=== PATIENT | female | born 2000 ===

== ENCOUNTER 2018-12-20 17:13 | Emergency (ER) | END 2018-12-20 17:42 | disposition left against medical advice (07) | LOC: UCCORT 17:13 | DX: S99.912A Unspecified injury of left ankle, initial encounter (principal); X58.XXXA Exposure to other specified factors, initial encounter; Y92.9 Unspecified place or not applicable; Z53.21 Procedure and treatment not carried out due to patient leaving prior to being seen by health care provider ==